=== PATIENT | male | born 1940 | race Caucasian/White ===

== ENCOUNTER 2021-08-13 12:02 | Emergency (ER) | payer MEDICARE ==
[2021-08-13 13:28] LABS: #Basophils 0.1 thou/uL (0.0-0.2); #Eosinphils 0.4 thou/uL (0.0-0.7); #Lymphocytes 1.7 thou/uL (1.20-3.40); #Monocytes 0.8 thou/uL (0.11-0.59); #Neutrophils 3.6 thou/uL (1.40-6.50); %Basophils 0.9 % (0.0-1.0); %Eosinophils 6.3 % (0.0-10.0); %Lymphocytes 26.4 % (21.0-51.0); %Monocytes 11.6 % (0.0-10.0); %Neutrophils 54.8 % (42.0-75.0); Mean Corpuscular HGB CONC 33.1 g/dL (32.0-36.0); Mean Corpuscular Hemoglobin 32.1 pg (27.0-31.0); Mean Platelet Volume 7.2 fL (7.4-10.4); Platelet Count 248 thou/uL (130-400); Red Blood Cell (RBC) Count 4.37 mill/uL (4.70-6.10); White Blood Cell (WBC) Count 6.6 thou/uL (4.8-10.8)
[2021-08-13 13:47] LABS: ALT (SGPT) 12 U/L (8-55); AST (SGOT) 16 U/L (5-34); Albumin 4.1 g/dL (3.4-4.8); Alkaline Phosphatase 66 U/L (40-110); Anion Gap 13 mmol/L (10-20); BUN (Urea Nitrogen) 22 mg/dL (8.4-25.7); Bilirubin, Total 0.5 mg/dL (0.2-1.2); Calc. Creatinine Clearance 0 mL/min (70-130); Calcium 9.3 mg/dL (7.8-10.44); Carbon Dioxide 23 mmol/L (23-31); Chloride 101 mmol/L (98-107); Globulin 3.1 g/dL (2.4-3.5); Glucose 85 mg/dL (83-110); Lipase 45 U/L (8-78); Potassium 4.6 mmol/L (3.5-5.1); Protein, Total 7.2 g/dL (5.8-8.1); Sodium 132 mmol/L (136-145)
== END 2021-08-13 15:00 | disposition home or self-care (01) ==
LOC: ERS 12:02
DX: R94.31 Abnormal electrocardiogram [ECG] [EKG] (principal); R29.700 NIHSS score 0; I45.10 Unspecified right bundle-branch block; I10 Essential (primary) hypertension; E11.9 Type 2 diabetes mellitus without complications; Z79.84 Long term (current) use of oral hypoglycemic drugs; Z79.899 Other long term (current) drug therapy
CPT/HCPCS: 36415; 71045; 80053; 83690; 84484; 85025; 93005; 94760

== ENCOUNTER 2022-05-02 15:39 | Inpatient (IN) | payer OTHER, MEDICARE ==
[~2022-05-02 15:39] MED LIST: Iopamidol-370 76% 500 ML 1 ML ONE
[2022-05-02] MEDS ORDERED: Fentanyl 100 MCG/2 ML VIAL ONE (16:39)
[2022-05-02 16:53] LABS: #Basophils 0.1 thou/uL (0.0-0.2); #Lymphocytes 1.1 thou/uL (1.20-3.40); #Monocytes 0.9 thou/uL (0.11-0.59); #Neutrophils 14.2 thou/uL (1.40-6.50); %Basophils 0.3 % (0.0-1.0); %Eosinophils 0.3 % (0.0-10.0); %Lymphocytes 6.6 % (21.0-51.0); %Monocytes 5.8 % (0.0-10.0); Hemoglobin 14.3 g/dL (14.0-18.0); Mean Corpuscular HGB CONC 34.1 g/dL (32.0-36.0); Mean Corpuscular Hemoglobin 33.3 pg (27.0-31.0); Mean Corpuscular Volume 97.4 fl (78.0-98.0); Mean Platelet Volume 7.4 fL (7.4-10.4); Platelet Count 225 10x3/uL (130-400); RBC Distribution Width 11.5 % (11.5-14.5); Red Blood Cell (RBC) Count 4.29 mill/uL (4.70-6.10); White Blood Cell (WBC) Count 16.3 10x3/uL (4.8-10.8)
[2022-05-02 17:18] LABS: Acetaminophen Less than 10.0 mcg/mL (10.0-30.0); Alcohol Less than 10 mg/dL (Less than 10); CK (CPK) 101 U/L (30-200); Salicylate Less than 8.0 mg/dL (15.0-30.0)
[2022-05-02 17:31] LABS: Anion Gap 14 mmol/L (10-20); Carbon Dioxide 21 mmol/L (23-31); Chloride 103 mmol/L (98-107); Potassium 4.4 mmol/L (3.5-5.1); Sodium 134 mmol/L (136-145)
[2022-05-02 17:33] LABS: ALT (SGPT) 18 U/L (8-55); AST (SGOT) 16 U/L (5-34); Albumin 3.7 g/dL (3.4-4.8); Alkaline Phosphatase 71 U/L (40-110); BUN (Urea Nitrogen) 15 mg/dL (8.4-25.7); Bilirubin, Total 0.4 mg/dL (0.2-1.2); Calc. Creatinine Clearance 0 mL/min (70-130); Estimated GFR 73; Globulin 2.9 g/dL (2.4-3.5); Glucose 210 mg/dL (83-110); Lipase 49 U/L (8-78); Protein, Total 6.6 g/dL (5.8-8.1)
[2022-05-02 17:35] LABS: SARS-CoV-2 NAA Rapid Test Not Detected (NotDetected)
[2022-05-02] MEDS ORDERED: Cefepime 2 GM VIAL ONE (18:00)
[2022-05-02 19:23] LABS: Bilirubin Negative (Negative); Blood, Urine Negative (Negative); Clarity Clear (Clear); Glucose, Urine (Dipstick) 100 mg/dL (Negative); Ketone, Urine 10 mg/dL (Negative); Leukocyte Negative Leu/uL (Negative); Nitrite Negative (Negative); Protein, Urine (Dipstick) 20 mg/dL (Neg-Trace); Urobilinogen Normal mg/dL (Less than 2)
[2022-05-02 19:33] LABS: Amphetamine Not Detected (NotDetected); Barbiturates Screen Not Detected (NotDetected); Benzodiazepine Screen Not Detected (NotDetected); Cocaine Metabolite Screen Not Detected (NotDetected); Methadone Not Detected (NotDetected); Methamphetamine Not Detected (NotDetected); Opiate Screen Detected (NotDetected); Oxycodone Screen Not Detected (NotDetected); Phencyclidine (PCP) Not Detected (NotDetected); THC/Cannabinoid Screen Not Detected (NotDetected); Tricyclic Screen Not Detected (NotDetected)
[2022-05-02 19:47] LABS: Lactic Acid 2.7 mmol/L (0.5-2.2)
[2022-05-02] MEDS ORDERED: Aspirin Chewable 81 MG TAB ONE (19:54)
[2022-05-02] MEDS ORDERED: VANCOMYCIN 2 GRAM/500 ML BAG 2 GM in Premix Bag 1 BAG IVPB SCH (20:15)
[2022-05-02 23:20] LABS: Troponin I Less than 0.010 ng/mL (< 0.028)
[2022-05-02] MEDS ORDERED: Acetaminophen 325 MG TAB PO PRN (23:32)
[2022-05-02] MEDS ORDERED: Ondansetron PF 4 MG/2 ML Vial IVP PRN (23:32)
[2022-05-02] MEDS ORDERED: Ondansetron ODT 4 MG TAB PO PRN (23:32)
[2022-05-02] MEDS ORDERED: Sodium Chloride 0.9% 1,000 ML IV SCH (23:45)
[2022-05-02] MEDS ORDERED: Dextrose 5% in Water 1,000 ML IV PRN (23:55)
[2022-05-02] MEDS ORDERED: Dextrose 50% Abboject 50 ML SYRINGE SLOW IVP PRN (23:55)
[2022-05-02] MEDS ORDERED: HumaLOG 300 UNITS/3 ML VIAL SC PRN ×2 (23:55)
[2022-05-03] MEDS ORDERED: Lidocaine Viscous Sol 2% 15 ml UD Cup ONE (00:55)
[2022-05-03] MEDS: Sodium Chloride 0.9% 1,000 ML IV SCH ×4 (01:08→23:42)
[2022-05-03 01:22] LABS: Hemoglobin A1c 6.9 % (4.0-6.0)
[2022-05-03 01:37] LABS: Troponin I Less than 0.010 ng/mL (< 0.028)
[2022-05-03 06:08] LABS: #Basophils 0.1 thou/uL (0.0-0.2); #Eosinphils 0.2 thou/uL (0.0-0.7); #Lymphocytes 2.2 thou/uL (1.20-3.40); #Monocytes 0.9 thou/uL (0.11-0.59); #Neutrophils 5.8 thou/uL (1.40-6.50); %Basophils 0.6 % (0.0-1.0); %Eosinophils 2.4 % (0.0-10.0); %Lymphocytes 24.3 % (21.0-51.0); %Monocytes 9.9 % (0.0-10.0); %Neutrophils 62.8 % (42.0-75.0); Hemoglobin 13.3 g/dL (14.0-18.0); Mean Corpuscular HGB CONC 34.4 g/dL (32.0-36.0); Mean Corpuscular Hemoglobin 33.7 pg (27.0-31.0); Mean Corpuscular Volume 97.9 fl (78.0-98.0); Mean Platelet Volume 7.1 fL (7.4-10.4); Platelet Count 228 10x3/uL (130-400); RBC Distribution Width 11.4 % (11.5-14.5); Red Blood Cell (RBC) Count 3.95 mill/uL (4.70-6.10); White Blood Cell (WBC) Count 9.2 10x3/uL (4.8-10.8)
[2022-05-03 06:39] LABS: Anion Gap 12 mmol/L (10-20); BUN (Urea Nitrogen) 13 mg/dL (8.4-25.7); Calc. Creatinine Clearance 94 mL/min (70-130); Calcium 8.8 mg/dL (7.8-10.44); Carbon Dioxide 26 mmol/L (23-31); Chloride 103 mmol/L (98-107); Estimated GFR 86; Glucose 144 mg/dL (83-110); Sodium 137 mmol/L (136-145)
[2022-05-03 13:31] VITALS: BMI 31.3
[2022-05-03] MEDS ORDERED: Chloraseptic Spray 180 ml Bottle PO PRN (14:17)
[2022-05-03] MEDS: Terazosin HCl 5 MG CAP PO SCH (20:36)
[2022-05-04] MEDS ORDERED: Rosuvastatin 10 MG TAB PO SCH ×2 (09:00→21:00)
[2022-05-04] MEDS: Losartan 25 MG TAB PO SCH (11:00)
[2022-05-04] MEDS: FLUoxetine HCl 10 MG CAP PO SCH (11:00)
[2022-05-04] MEDS: Gemfibrozil 600 MG TAB PO SCH ×2 (11:01→17:28)
[2022-05-04] MEDS: Aspirin 81 mg Enteric Coated Tablet PO SCH (11:01)
[2022-05-04] MEDS: Finasteride 5 MG TAB PO SCH (11:01)
[2022-05-04] MEDS: Sodium Chloride 0.9% 1,000 ML IV SCH ×3 (12:07→21:45)
[2022-05-04] MEDS: metFORMIN 500 MG TAB PO SCH (12:08)
[2022-05-04] MEDS: Terazosin HCl 5 MG CAP PO SCH (21:40)
[2022-05-04] MEDS: Senokot S 8.6-50 MG TAB PO SCH (21:41)
[2022-05-05] MEDS ORDERED: Clindamycin/D5W 600 mg/50 ml Premix Bag ONE (07:24)
[2022-05-05] MEDS ORDERED: Vancomycin HCl 500 MG VIAL ONE (07:24)
[2022-05-05] MEDS ORDERED: Levofloxacin 500 mg/D5W 100 ml Premix Bag ONE (07:25)
[2022-05-05] MEDS ORDERED: Midazolam HCl 2 mg/2 ml Vial ONE (07:38)
[2022-05-05] MEDS ORDERED: FENTANYL 50 MCG/ML 1 ML VIAL ONE (07:39)
[2022-05-05] MEDS ORDERED: Lidocaine 1% (PF) 30 ML VIAL ONE ×2 (07:41→08:14)
[2022-05-05] MEDS: Gemfibrozil 600 MG TAB PO SCH ×2 (10:20→15:43)
[2022-05-05] MEDS: Senokot S 8.6-50 MG TAB PO SCH (10:21)
[2022-05-05] MEDS: metFORMIN 500 MG TAB PO SCH (10:21)
[2022-05-05] MEDS: FLUoxetine HCl 10 MG CAP PO SCH (10:21)
[2022-05-05] MEDS: Finasteride 5 MG TAB PO SCH (10:22)
[2022-05-05] MEDS: Aspirin 81 mg Enteric Coated Tablet PO SCH (10:22)
[2022-05-05] MEDS: Losartan 25 MG TAB PO SCH (10:22)
[2022-05-05] MEDS: Sodium Chloride 0.9% 1,000 ML IV SCH (10:23)
[2022-05-05 10:30] LABS: #Eosinphils 0.3 thou/uL (0.0-0.7); #Lymphocytes 1.5 thou/uL (1.20-3.40); #Monocytes 0.7 thou/uL (0.11-0.59); #Neutrophils 4.4 thou/uL (1.40-6.50); %Basophils 0.4 % (0.0-1.0); %Eosinophils 4.9 % (0.0-10.0); %Monocytes 10.2 % (0.0-10.0); %Neutrophils 63.5 % (42.0-75.0); Hemoglobin 12.6 g/dL (14.0-18.0); Mean Corpuscular HGB CONC 31.8 g/dL (32.0-36.0); Mean Corpuscular Hemoglobin 32.2 pg (27.0-31.0); Mean Platelet Volume 7.6 fL (7.4-10.4); Platelet Count 164 10x3/uL (130-400); RBC Distribution Width 11.6 % (11.5-14.5); Red Blood Cell (RBC) Count 3.91 mill/uL (4.70-6.10); White Blood Cell (WBC) Count 6.9 10x3/uL (4.8-10.8)
[2022-05-05 10:32] LABS: ALT (SGPT) 15 U/L (8-55); AST (SGOT) 17 U/L (5-34); Albumin 3.2 g/dL (3.4-4.8); Alkaline Phosphatase 56 U/L (40-110); Anion Gap 12 mmol/L (10-20); BUN (Urea Nitrogen) 9 mg/dL (8.4-25.7); Bilirubin, Total 0.7 mg/dL (0.2-1.2); Calc. Creatinine Clearance 111 mL/min (70-130); Calcium 8.3 mg/dL (7.8-10.44); Carbon Dioxide 19 mmol/L (23-31); Chloride 108 mmol/L (98-107); Estimated GFR 89; Globulin 2.5 g/dL (2.4-3.5); Glucose 106 mg/dL (83-110); Magnesium 1.7 mg/dL (1.6-2.6); Phosphorus 2.6 mg/dL (2.3-4.7); Potassium 4.2 mmol/L (3.5-5.1); Protein, Total 5.7 g/dL (5.8-8.1); Sodium 135 mmol/L (136-145)
[2022-05-05 13:26] VITALS: BP 125/58; TEMP 97.7
== END 2022-05-05 16:57 | disposition home or self-care (01) | DRG 243 ==
LOC: ERS 15:39 → ERHOLD 21:46 → 2SW 05-03 13:29 → OBSVTOIN 05-04 13:04
PROVIDERS: ADMIT Student in an Organized Health Care Education/Training Program; ATTEND Internal Medicine
PROC: 0JH806Z Insertion of Pacemaker, Dual Chamber into Abdomen Subcutaneous Tissue and Fascia, Open Approach (ICD-10-PCS; principal; 2022-05-05)
PROC: 02H63JZ Insertion of Pacemaker Lead into Right Atrium, Percutaneous Approach (ICD-10-PCS; 2022-05-05)
PROC: 02HK3JZ Insertion of Pacemaker Lead into Right Ventricle, Percutaneous Approach (ICD-10-PCS; 2022-05-05)
DX: I44.1 Atrioventricular block, second degree (principal); N20.1 Calculus of ureter; I45.2 Bifascicular block; E11.9 Type 2 diabetes mellitus without complications; I10 Essential (primary) hypertension; E78.5 Hyperlipidemia, unspecified; N40.0 Benign prostatic hyperplasia without lower urinary tract symptoms; Z20.822 Contact with and (suspected) exposure to COVID-19; Z88.0 Allergy status to penicillin; Z79.899 Other long term (current) drug therapy; Z79.84 Long term (current) use of oral hypoglycemic drugs; Z83.3 Family history of diabetes mellitus; Z98.890 Other specified postprocedural states; V47.5XXA Car driver injured in collision with fixed or stationary object in traffic accident, initial encounter
CPT/HCPCS: 33208; 36415; 36416; 70450; 71045; 71260; 72125; 74177; 80048; 80053; 80306; 80307; 81003; 82550; 83036; 83605; 83690; 83735; 84100; 84145; 84484; 85025; 87040; 87086; 93005; 93010; 93306; 93798; 95816; 95819; 95957; 96365; 96366; 96367; 96374; 96375; 96376; 99152; 99153; C1785; C1898; G0378; J0692; J1956; J2001; J2250; J3010; J3370; J3490; J7050; Q9967

== ENCOUNTER 2022-09-25 17:01 | Observation (INO) | payer MEDICARE ==
[2022-09-25 18:08] LABS: Bacteria/HPF 1+ HPF (None Seen); Bilirubin Negative (Negative); Blood, Urine 2+ (Negative); CAUTI Indications for Culture Alt mental st,lethar; Clarity Clear (Clear); Glucose, Urine (Dipstick) 30 mg/dL (Negative); Ketone, Urine 10 mg/dL (Negative); Leukocyte Negative Leu/uL (Negative); Nitrite Negative (Negative); Protein, Urine (Dipstick) 50 mg/dL (Neg-Trace); RBC/HPF 21-50 HPF (0-3); Specific Gravity, Urine 1.015 (1.002-1.036); Squamous Epithelial 0-3 HPF (0-3); Urine Culture Reflex No No; Urobilinogen Normal mg/dL (Less than 2); pH, Urine 5.5 (5.0-9.0)
[2022-09-25 18:51] LABS: #Basophils 0.1 thou/uL (0.0-0.2); #Monocytes 0.5 thou/uL (0.11-0.59); #Neutrophils 9.7 thou/uL (1.40-6.50); %Basophils 0.5 % (0.0-1.0); %Eosinophils 0.2 % (0.0-10.0); %Lymphocytes 6.9 % (21.0-51.0); %Monocytes 4.6 % (0.0-10.0); %Neutrophils 87.2 % (42.0-75.0); Hemoglobin 14.2 g/dL (14.0-18.0); Mean Corpuscular HGB CONC 33.6 g/dL (32.0-36.0); Mean Corpuscular Hemoglobin 32.4 pg (27.0-31.0); Mean Corpuscular Volume 96.6 fl (78.0-98.0); Mean Platelet Volume 9.7 fL (7.4-10.4); Platelet Count 206 10x3/uL (130-400); RBC Distribution Width 12.6 % (11.5-14.5); Red Blood Cell (RBC) Count 4.38 mill/uL (4.70-6.10); White Blood Cell (WBC) Count 11.1 10x3/uL (4.8-10.8)
[2022-09-25 19:15] LABS: ALT (SGPT) 13 U/L (8-55); AST (SGOT) 14 U/L (5-34); Albumin 3.5 g/dL (3.4-4.8); Alkaline Phosphatase 70 U/L (40-110); Anion Gap 14 mmol/L (10-20); BUN (Urea Nitrogen) 16 mg/dL (8.4-25.7); Bilirubin, Total 0.6 mg/dL (0.2-1.2); Calc. Creatinine Clearance 0 mL/min (70-130); Calcium 8.4 mg/dL (7.8-10.44); Carbon Dioxide 20 mmol/L (23-31); Chloride 107 mmol/L (98-107); Estimated GFR 56; Globulin 2.7 g/dL (2.4-3.5); Glucose 187 mg/dL (83-110); Magnesium 1.6 mg/dL (1.6-2.6); Potassium 4.8 mmol/L (3.5-5.1); Protein, Total 6.2 g/dL (5.8-8.1); Sodium 136 mmol/L (136-145)
[2022-09-25] MEDS ORDERED: cefTRIAXone (ROCEPHIN) 2 GM VIAL ONE (20:02)
[2022-09-25] MEDS ORDERED: Dextrose 5% in Water 1,000 ML IV PRN (20:26)
[2022-09-25] MEDS ORDERED: Dextrose 50% Abboject 50 ML SYRINGE SLOW IVP PRN (20:26)
[2022-09-25] MEDS ORDERED: Ondansetron ODT 4 MG TAB PO PRN (20:26)
[2022-09-25] MEDS ORDERED: Glucagon 1 MG/ML KIT IM PRN (20:26)
[2022-09-25] MEDS ORDERED: Acetaminophen 325 MG TAB PO PRN (20:26)
[2022-09-25] MEDS ORDERED: HumaLOG 300 UNITS/3 ML VIAL SC PRN (20:26)
[2022-09-25] MEDS: Senokot S 8.6-50 MG TAB PO SCH (22:17)
[2022-09-25 22:23] VITALS: BMI 32.4
[2022-09-25] MEDS ORDERED: Rosuvastatin 10 MG TAB PO SCH (23:00)
[2022-09-25 23:29] LABS: Lactic Acid 2.9 mmol/L (0.5-2.2)
[2022-09-26 05:12] LABS: #Basophils 0.1 thou/uL (0.0-0.2); #Eosinphils 0.3 thou/uL (0.0-0.7); #Monocytes 0.9 thou/uL (0.11-0.59); #Neutrophils 4.7 thou/uL (1.40-6.50); %Basophils 0.7 % (0.0-1.0); %Eosinophils 3.4 % (0.0-10.0); %Monocytes 10.4 % (0.0-10.0); %Neutrophils 57.1 % (42.0-75.0); Hemoglobin 12.4 g/dL (14.0-18.0); Mean Corpuscular HGB CONC 34.1 g/dL (32.0-36.0); Mean Corpuscular Hemoglobin 32.5 pg (27.0-31.0); Mean Corpuscular Volume 95.5 fl (78.0-98.0); Mean Platelet Volume 9.7 fL (7.4-10.4); Platelet Count 187 10x3/uL (130-400); RBC Distribution Width 12.6 % (11.5-14.5); Red Blood Cell (RBC) Count 3.81 mill/uL (4.70-6.10); White Blood Cell (WBC) Count 8.3 10x3/uL (4.8-10.8)
[2022-09-26 05:29] LABS: Anion Gap 9 mmol/L (10-20); BUN (Urea Nitrogen) 16 mg/dL (8.4-25.7); Calc. Creatinine Clearance 92 mL/min (70-130); Calcium 8.3 mg/dL (7.8-10.44); Carbon Dioxide 23 mmol/L (23-31); Chloride 108 mmol/L (98-107); Estimated GFR 77; Glucose 137 mg/dL (83-110); Potassium 3.8 mmol/L (3.5-5.1); Sodium 136 mmol/L (136-145)
[2022-09-26] MEDS ORDERED: Gemfibrozil 600 MG TAB PO SCH (07:30)
[2022-09-26] MEDS ORDERED: Rosuvastatin 10 MG TAB PO SCH (09:00)
[2022-09-26] MEDS ORDERED: Finasteride 5 MG TAB PO SCH (09:00)
[2022-09-26] MEDS ORDERED: Aspirin 81 mg Enteric Coated Tablet PO SCH (09:00)
[2022-09-26] MEDS: Senokot S 8.6-50 MG TAB PO SCH (09:36)
[2022-09-26 11:48] VITALS: BP 118/60
[2022-09-26 12:00] VITALS: TEMP 98.1
== END 2022-09-26 14:05 | disposition home or self-care (01) ==
LOC: ERS 17:01 → SUATTDRO 17:01 → 2SW 20:11
PROVIDERS: ADMIT Family Medicine; ATTEND Family Medicine
DX: R55 Syncope and collapse (principal); I10 Essential (primary) hypertension; E11.9 Type 2 diabetes mellitus without complications; R41.82 Altered mental status, unspecified; N40.0 Benign prostatic hyperplasia without lower urinary tract symptoms; Z88.0 Allergy status to penicillin; Z79.82 Long term (current) use of aspirin; Z79.899 Other long term (current) drug therapy; Z79.84 Long term (current) use of oral hypoglycemic drugs; Z95.0 Presence of cardiac pacemaker
CPT/HCPCS: 36415; 36416; 70450; 71045; 80048; 80053; 81001; 83605; 83735; 83880; 84443; 84484; 85025; 87040; 87086; 93005; 96365; 96372; G0378; J0696; J1650

== ENCOUNTER → 2024-02-25 | Day surgery (SDC) | payer MEDICARE ==
[~2024-02-25] MED LIST changes: -Iopamidol-370 76% 500 ML 1 ML ONE; +Sodium Bicarbonate 2.5 MEQ/5 ML SDV ONE
== END ==
LOC: ULT 12:42
PROVIDERS: ATTEND Specialist
PROC: 0G9 Endocrine System, Drainage (ICD-10-PCS; principal; 2024-02-25)
DX: E07.9 Disorder of thyroid, unspecified (principal)
CPT/HCPCS: 10005; 88112; 88184; 88185; 88305; 88342